=== PATIENT | male | born 1945 | race Two or more races ===

== ENCOUNTER 2018-09-26 16:30 | Emergency (ER) | payer MEDICARE, OTHER ==
[~2018-09-26] VITALS: Ht 170.2 cm; Wt 70.3 kg
[~2018-09-26 16:30] MED LIST: ATOR20TA PO; DONE10TA11 PO; ESCI20TA PO; LEVE500T9 PO; MEMA5TAB PO; MULT-67 PO; QUET100T PO; QUET50TA PO; RASA1TAB PO
--- NOTE | 2018-09-26 16:44 | NUR ---
ERIC BLUNT AT BEDSIDE FOR MSE.
--- NOTE | 2018-09-26 17:01 | NUR ---
PT TAKEN TO RADIOLOGY FOR CT SCAN.
[2018-09-26] MEDS ORDERED: CARB-93 PO (17:10)
[2018-09-26] MEDS ORDERED: ACET-2154 PO (17:10)
[2018-09-26] MEDS ORDERED: CHOL400C8 PO (17:10)
[2018-09-26] MEDS ORDERED: QUET25TA PO (17:10)
[2018-09-26] MEDS ORDERED: DOCU-141 PO (17:10)
--- NOTE | 2018-09-26 17:29 | NUR ---
PT BACK IN ER FROM RADIOLOGY.
--- NOTE | 2018-09-26 18:02 | NUR ---
PAGED [facility]PHROLOGY FOR DR TO DR NICOLE. AWAITING CALLBACK. ATTEMPT 1.
--- NOTE | 2018-09-26 18:03 | NUR ---
ERIC BLUNT SPEAKING W/ DR. PEARSON.
--- NOTE | 2018-09-26 18:05 | NUR ---
PAGED ORTHO ON-CALL, DR. JOYNER, FOR CONSULT. AWAITING CALLBACK. ATTEMPT 1.
[2018-09-26 18:19] LABS: BASOPHILS % (AUTO) 0.4 % (0.0-2.0); EOSINOPHILS # (AUTO) 0.3 K/uL (0.0-0.7); EOSINOPHILS % (AUTO) 3.2 % (0.0-7.0); HEMOGLOBIN 11.8 g/dL (12.5-16.3); LYMPHOCYTES # (AUTO) 2.1 K/uL (20.0-40.0); LYMPHOCYTES % (AUTO) 24.7 % (20.5-51.5); MEAN CORPUSCULAR HEMOGLOBIN 29.3 uug (23.8-33.4); MEAN CORPUSCULAR HGB CONC 33 g/dL (32.5-36.3); MEAN CORPUSCULAR VOLUME 89.5 fL (73.0-96.2); MONOCYTES # (AUTO) 0.7 K/uL (2.0-10.0); NEUTROPHILS # (AUTO) 5.3 K/uL (1.8-8.9); NEUTROPHILS % (AUTO) 63.7 % (38.5-71.5); PLATELET COUNT (AUTO) 262 K/uL (152-348); RED BLOOD CELL COUNT(AUTO) 4.03 MIL/uL (4.06-5.63); WHITE BLOOD COUNT (AUTO) 8.4 K/uL (3.6-10.2)
--- NOTE | 2018-09-26 18:22 | NUR ---
ERIC BLUNT AT BEDSIDE FOR PT UPDATE.
[2018-09-26 18:28] LABS: CARBON DIOXIDE 25 mmol/L (21-32); CHLORIDE 111 mmol/L (98-107); CREATININE 0.9 mg/dL (0.6-1.3); GLUCOSE 169 mg/dL (74-106); POTASSIUM 3.7 mmol/L (3.5-5.1); UREA NITROGEN, BLOOD 36 mg/dL (7-18)
--- NOTE | 2018-09-26 18:29 | NUR ---
PRESSER FIRST AT BEDSIDE.
[2018-09-26] MEDS ORDERED: MORPHINE SULFATE 4 MG/1 ML DISP.SYRIN IV ONE (18:30)
[2018-09-26] MEDS ORDERED: MORPHINE SULFATE 4 MG/1 ML DISP.SYRIN ONE (18:31)
[2018-09-26 18:35] LABS: EOSINOPHILS % (MANUAL) 2 % (0-8); LYMPHOCYTES % (MANUAL) 30 % (20-40); MONOCYTES % (MANUAL) 6 % (2-10); NEUTROPHILS % (MANUAL) 62 % (42-75)
--- NOTE | 2018-09-26 18:56 | NUR ---
PAGED DR. JENKINS FOR CONSULT. AWAITING CALLBACK. ATTEMPT 1.
--- NOTE | 2018-09-26 18:59 | NUR ---
ATTEMPTED TO PLACE A KNEE IMMOBILIZER ON LLE - PT IS CONTRACTED AND UNABLE TO EXTEND THE LLE. ERIC BLUNT AWARE.
--- NOTE | 2018-09-26 19:04 | NUR ---
SHIFT REPORT GIVEN TO ADITI BENITES.
--- NOTE | 2018-09-26 19:22 | NUR ---
Long leg ortho splint applied w/ catrina bandage - CMS intact, NAD
--- NOTE | 2018-09-26 19:33 | NUR ---
Called [facility] w/ Theo, trip #[id number] [address] ETA 2200,
--- NOTE | 2018-09-26 19:53 | NUR ---
Update from [facility] ETA 2015
--- NOTE | 2018-09-26 20:37 | NUR ---
Patient discharged to home in stable conditon. Written and verbal after care instructions given. Patient verbalizes understanding of instructions. Pt. d/c per MD order, [facility] here for BLS transport, all belongings w/ pt., IV/ID band removed, taken off unit via stretcher accompanied by , NAD
== END 2018-09-26 20:45 | disposition home or self-care (01) ==
LOC: ER 16:32
DX: S82.142A Displaced bicondylar fracture of left tibia, initial encounter for closed fracture (principal); Z79.899 Other long term (current) drug therapy; X58.XXXA Exposure to other specified factors, initial encounter; Y93.89 Activity, other specified; Y92.89 Other specified places as the place of occurrence of the external cause; Y99.8 Other external cause status
CPT/HCPCS: 29505; 36415; 71045; 73700; 80048; 85025; 85730; 93005; 96374; 99284; J2270; A4663